=== PATIENT | female | born 1980 | race Caucasian/White ===

== ENCOUNTER 2018-11-16 16:55 | Emergency (ER) | payer OTHER ==
[2018-11-16 17:15] VITALS: BP 121/69
--- NOTE | 2018-11-16 17:37 | EDM.PDOC ---
ED HPI GENERAL MEDICAL PROBLEM - General Chief Complaint: ENT Problem Stated Complaint: DENTAL COMPLAINT Time Seen by Provider: 11/16/18 17:17 Source of Information: Reports: Patient History Limitations: Reports: No Limitations - History of Present Illness INITIAL COMMENTS - FREE TEXT/NARRATIVE: The patient presents with right lower jaw tooth pain. This started on Saturday when she was eating the tooth broke. Now she has more pain. She denies fever or chills. She does have a dentist in town. Onset: Sudden Duration: Day(s): Location: Reports: Face (Right lower jaw) Quality: Reports: Sharp Severity: Severe Improves with: Reports: None Worsens with: Reports: None Associated Symptoms: Reports: No Other Symptoms Left Lower Tooth/Teeth Pain Score (Numeric/FACES): 7 - Related Data Allergies Allergy/AdvReac Type Severity Reaction Status Date / Time No Known Allergies Allergy Verified 10/01/14 10:00 Home Meds: Home Meds Sertraline [Zoloft] 25 mg PO DAILY 11/16/18 [History] Past Medical History HEENT History: Reports: Other (See Below) Other HEENT History: dental issues Gastrointestinal History: Reports: Other (See Below) Other Gastrointestinal History: 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 - Past Surgical History Musculoskeletal Surgical History: Reports: Carpal Tunnel Other Musculoskeletal Surgeries/Procedures:: surgery; bursitits to hip joints Social & Family History - Tobacco Use Smoking Status *Q: Current Every Day Smoker Years of Tobacco use: 13 Packs/Tins Daily: 0.5 - Caffeine Use Caffeine Use: Reports: Coffee, Soda - Recreational Drug Use Recreational Drug Use: No ED ROS ENT - Review of Systems Review Of Systems: See Below Constitutional: Reports: No Symptoms HEENT: Reports: Dental Pain Respiratory: Reports: No Symptoms Cardiovascular: Reports: No Symptoms Endocrine: Reports: No Symptoms GI/Abdominal: Reports: No Symptoms : Reports: No Symptoms Musculoskeletal: Reports: No Symptoms ED EXAM, ENT - Physical Exam Exam: See Below Exam Limited By: No Limitations General Appearance: Alert, No Apparent Distress Ears: Normal External Exam, Normal Canal, Normal TMs Nose: Normal Inspection Mouth/Throat: Other (Pain upon palpation to the right lower jaw with edema and erythema at the gum line of a fractured right molar with a cavity) Course - Vital Signs Last Recorded V/S: Last Vital Signs Temp 98.3 F 11/16/18 17:14 Pulse 65 11/16/18 17:14 Resp 20 11/16/18 17:14 BP 121/69 11/16/18 17:14 Pulse Ox 98 11/16/18 17:14 - Re-Assessments/Exams Free Text/Narrative Re-Assessment/Exam: 11/16/18 17:34 I will get her on some penicillin and hydrocodone. Departure - Departure Time of Disposition: 17:40 Disposition: Home, Self-Care 01 Condition: Good Clinical Impression: Dental abscess, Pain, dental Tooth fracture Qualifiers: Encounter type: initial encounter Fracture type: closed Qualified Code(s): S02.5XXA - Fracture of tooth (traumatic), initial encounter for closed fracture - Discharge Information *PRESCRIPTION DRUG MONITORING PROGRAM REVIEWED*: No *COPY OF PRESCRIPTION DRUG MONITORING REPORT IN PATIENT SHINE: No Referrals: PCP,None [Primary Care Provider] - Additional Instructions: Take the medication as prescribed. Follow up with your dentist within the week. Please return if you are worse.
== END 2018-11-16 18:00 | disposition home or self-care (01) ==
LOC: JD.ED 16:55
DX: K04.7 Periapical abscess without sinus (principal); K03.81 Cracked tooth; K02.9 Dental caries, unspecified; F17.210 Nicotine dependence, cigarettes, uncomplicated
CPT/HCPCS: 99282; 99283